=== PATIENT | male | born 1945 | race Caucasian/White ===

== ENCOUNTER → 2017-07-22 | Outpatient (CLI) | payer MEDICARE, OTHER ==
[~2017-07-22] MED LIST: ALFU10TA28 PO; AMLO-96 PO; DIPH0.5D12 IM; DOCU-416 PO; FINA5TAB67 PO; FLU180SY9 IM; FLU45SYR25 IM ONLY; HYDR-317 PO; LISI-355 PO; LISI-362 PO; LISI20TA29 PO; LOR5/325 PO; METF500T4 PO; MIRA50TA PO; NITR-105 PO; OXYB15TA14 PO; PHEN200T32 PO; PNEU0.5D3 IM; TAMS0.4C70 PO
[2017-07-22 07:24] LABS: PLATELET COUNT, AUTOMATED 212 K/uL (150-450)
[2017-07-22 07:55] LABS: LDL CHOLESTEROL 61 mg/dl
== END ==
LOC: LAB 06:54
PROVIDERS: ATTEND Nurse Practitioner Family
DX: Z12.5 Encounter for screening for malignant neoplasm of prostate (principal); E11.65 Type 2 diabetes mellitus with hyperglycemia; I10 Essential (primary) hypertension
CPT/HCPCS: 36415; 83036; 84443; 85025; G0103; 82040; 82247; 82310; 82374; 82435; 82465; 82565; 82947; 83718; 84075; 84132; 84153; 84155; 84295; 84450; 84460; 84478; 84520

== ENCOUNTER → 2018-01-26 | Outpatient (CLI) | payer MEDICARE, OTHER ==
[~2018-01-26] MED LIST changes: +ATOR20TA65 PO; +Glucometer
[2018-01-26 07:42] LABS: LDL CHOLESTEROL 14 mg/dl
== END ==
LOC: LAB 06:42
PROVIDERS: ATTEND Nurse Practitioner Family
DX: Z12.5 Encounter for screening for malignant neoplasm of prostate (principal); E78.5 Hyperlipidemia, unspecified; I10 Essential (primary) hypertension; E11.65 Type 2 diabetes mellitus with hyperglycemia; Z79.899 Other long term (current) drug therapy
CPT/HCPCS: 36415; 83036; G0103; 82040; 82247; 82310; 82374; 82435; 82465; 82565; 82947; 83718; 84075; 84132; 84153; 84155; 84295; 84450; 84460; 84478; 84520

== ENCOUNTER → 2018-05-04 | Outpatient (CLI) | payer MEDICARE, OTHER ==
[~2018-05-04] MED LIST changes: +AMLO-111 PO; -AMLO-96 PO; +ATOR10TA65 PO; +FLU180SY11 IM
[2018-05-04 08:54] LABS: LDL CHOLESTEROL 39 mg/dl
== END ==
LOC: LAB 07:02
PROVIDERS: ATTEND Nurse Practitioner Family
DX: E11.65 Type 2 diabetes mellitus with hyperglycemia (principal); E78.5 Hyperlipidemia, unspecified; I10 Essential (primary) hypertension
CPT/HCPCS: 36415; 82040; 82247; 82310; 82374; 82435; 82465; 82565; 82947; 83036; 83718; 84075; 84132; 84155; 84295; 84450; 84460; 84478; 84520

== ENCOUNTER → 2018-10-28 | Outpatient (CLI) | payer MEDICARE, OTHER ==
[~2018-10-28] MED LIST changes: -AMLO-111 PO; +AMLO-125 PO; -DIPH0.5D12 IM; +DIPH0.5S2 IM
[2018-10-28 07:26] LABS: PLATELET COUNT, AUTOMATED 206 K/uL (150-450)
[2018-10-28 07:40] LABS: LDL CHOLESTEROL 16 mg/dl
== END ==
LOC: LAB 07:09
PROVIDERS: ATTEND Nurse Practitioner Family
DX: Z12.5 Encounter for screening for malignant neoplasm of prostate (principal); E11.65 Type 2 diabetes mellitus with hyperglycemia; I10 Essential (primary) hypertension; E78.5 Hyperlipidemia, unspecified
CPT/HCPCS: 36415; 83036; 84443; 85025; G0103; 82040; 82247; 82310; 82374; 82435; 82465; 82565; 82947; 83718; 84075; 84132; 84153; 84155; 84295; 84450; 84460; 84478; 84520